=== PATIENT | female | born 1970 | race Asian ===

== ENCOUNTER 2016-12-12 00:24 | Emergency (ER) | payer OTHER ==
[~2016-12-12] VITALS: Ht 154.9 cm; Wt 71.7 kg
[2016-12-12 02:17] LABS: BASOPHIL % 1.4 % (0-2)
[2016-12-12 02:21] LABS: PLATELET COUNT 423 x10^3mcL (130-400); RED CELL DISTRIBUTION WIDTH 17.1 % (11.5-14.5)
[2016-12-12 02:43] LABS: CALCIUM 8.7 mg/dL (8.5-10.1); CARBON DIOXIDE 28.9 mmol/L (21-32); CHLORIDE SERUM 100 mmol/L (98-107); CREATININE SERUM 0.7 mg/dL (0.6-1.0); GFR1 > 60 mL/min; GLUCOSE SERUM 127 mg/dL (74-106); POTASSIUM SERUM 3.4 mmol/L (3.5-5.1); SODIUM SERUM 138 mmol/L (136-145)
[2016-12-12 02:47] LABS: ALBUMIN 3.6 g/dL (3.4-5.0); ALKALINE PHOSPHATASE 71 U/L (46-116); ALT/SGPT 16 U/L (14-59); AST/SGOT 18 U/L (15-37); BILIRUBIN TOTAL 0.26 mg/dL (0.20-1.00); LIPASE 181 IU/L (73-393)
[2016-12-12 02:54] LABS: TOTAL PROTEIN, SERUM 8.5 g/dL (6.4-8.2)
[2016-12-12 04:15] VITALS: BP 106/66
== END 2016-12-12 04:15 | disposition home or self-care (01) ==
LOC: ED 00:24
PROVIDERS: Emergency Medicine
DX: R51 Headache (principal); R11.2 Nausea with vomiting, unspecified
CPT/HCPCS: J1200; J1885; J2765; J7030